=== PATIENT | male | born 1985 | race Caucasian/White ===

== ENCOUNTER 2019-03-07 03:26 | Emergency (ER) | payer OTHER ==
[~2019-03-07] VITALS: Ht 182.9 cm; Wt 113.4 kg
--- OUTSIDE RECORDS SUMMARY | 2019-03-07 03:29 | XMS REPORT | Clinical Summary ---
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 Takes 2 tabs of the 60mg in the morning Active zolpidem (AMBIEN) 10 mg Take 10 mg by 5 tablet mouth 6 nightly. Active Problems Problem Noted Date Bilateral carpal tunnel syndrome 01/08/2017 Carpal tunnel syndrome of left wrist 03/04/2016 Lateral epicondylitis 12/24/2015 Family History Medical History Relation Name Comments No Known Problems Father No Known Problems Mother Relation Name Status Comments Father Alive Mother Alive Social History Date Tobacco Use Types Packs/Day Years Used Current Every Day Smoker Cigarettes 1 15 Smokeless Tobacco: Never Used Comments: 15 cigarrets per day Alcohol Use Drinks/Week oz/Week Comments No Sex Assigned at Date Recorded Not on file Industry Job Start Date Occupation Not on file Not on file Not on file Travel End Travel History Travel Start No recent travel history available. Last Filed Vital Signs Not on file Plan of Treatment Health Maintenance Due Date Last Done Comments INFLUENZA VACCINE 03/03/2019 Results Not on fileafter 03/06/2018 Insurance Type Payer Benefit Subscriber ID Effective Phone Address Plan / Dates Group PPO BCBS BCBS xxxxxxxxxxxxxxx 2015-P CHOICE resent PPO/[place] L EMPL PPO PPO BCBS BCBS OUT xxxxxxxxxxxxxxx 2016-P OF STATE resent Advance Directives Patient has advance care planning documents on file. For more information, miranda nettles contact: Dequan Herr [id number] [place] [address]
--- NOTE | 2019-03-07 04:34 | Diagnostic Imaging Report ---
X-ray left finger 3 views HISTORY: Pain. COMPARISON: None available. FINDINGS: Bones: Subtle lucent irregularity in the fourth digit distal tuft with questionable nondisplaced fracture line. Osseous alignment is within normal limits. Joints: The joint spaces are well-maintained. Soft tissues: Soft tissue swelling along the distal soft tissues of the fourth digit. The soft tissues appear unremarkable. IMPRESSION: Questionable fourth distal phalangeal tuft fracture with surrounding soft tissue swelling. Signed by: Kal Lagunas DO on 03/07/2019 4:30 AM
== END 2019-03-07 04:53 | disposition home or self-care (01) ==
LOC: ER 03:26
DX: S62.665A Nondisplaced fracture of distal phalanx of left ring finger, initial encounter for closed fracture (principal); W23.1XXA Caught, crushed, jammed, or pinched between stationary objects, initial encounter; Y99.0 Civilian activity done for income or pay; F17.210 Nicotine dependence, cigarettes, uncomplicated
CPT/HCPCS: 99282